=== PATIENT | female | born 1955 | race Caucasian/White ===

== ENCOUNTER → 2017-01-26 | Outpatient (CLI) | payer OTHER ==
[~2017-01-26] MED LIST: ASPI-496 PO; DRON400T PO; VALS80TA3 PO; [UNRECOGNIZED DRUG - REMARK] PO
[2017-01-26 09:08] LABS: HEMATOCRIT 45.5 % (34.6-47.8); HEMOGLOBIN 15.3 g/dL (11.7-16.4); WHITE BLOOD COUNT 6.3 x10^3/uL (3.4-10)
[2017-01-26 09:19] LABS: ASPARTATE AMINO TRANSFERASE 15 U/L (15-37); BLOOD UREA NITROGEN 18 mg/dL (7-18)
== END | disposition home or self-care (01) ==
LOC: LAB 08:41
PROVIDERS: ATTEND Obstetrics & Gynecology
DX: E34.9 Endocrine disorder, unspecified (principal); E78.00 Pure hypercholesterolemia, unspecified; E55.9 Vitamin D deficiency, unspecified; R79.89 Other specified abnormal findings of blood chemistry
CPT/HCPCS: 36415; 80053; 80061; 82306; 82670; 83001; 83002; 83036; 83525; 84144; 84439; 84443; 85025

== ENCOUNTER → 2017-02-20 | Outpatient (CLI) | payer OTHER | END | disposition home or self-care (01) | LOC: CFH 12:54 | PROVIDERS: ATTEND Obstetrics & Gynecology | DX: I34.0 Nonrheumatic mitral (valve) insufficiency (principal); I34.8 Other nonrheumatic mitral valve disorders; I48.0 Paroxysmal atrial fibrillation | CPT/HCPCS: 93306 ==

== ENCOUNTER 2018-07-12 09:51 | Emergency (ER) | payer OTHER ==
[~2018-07-12] VITALS: Ht 167.6 cm; Wt 88.1 kg
--- NOTE | 2018-07-12 10:10 | NUR ---
PT GIVEN GOWN AND ASKED TO CHANGE. RN LEFT ROOM FOR PRIVACY
--- NOTE | 2018-07-12 10:12 | NUR ---
62 Y/O FEMALE PRESENTS TO ED WITH C/O BACK PAIN. 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 I GET SOME TINGLING DOWN MY LEFT LEG OFF AND ON. I JUST NEED IT BETTER." NO ACUTE DISTRESS NOTED. PT PLACED ON CONT PULSE OX,NIBP. NO C/O GLF, SOB, CP, N/V/D,
--- NOTE | 2018-07-12 10:26 | NUR ---
NO C/O LOSS OF BOWEL AND BLADDER
[2018-07-12 10:27] VITALS: BP 136/87
[2018-07-12] MEDS ORDERED: KETOROLAC 30 MG/1 ML IM ONE (10:30)
[2018-07-12] MEDS ORDERED: CYCLOBENZAPRINE 10 MG TABLET PO ONE (10:30)
[2018-07-12] MEDS ORDERED: CYCLOBENZAPRINE 10 MG TABLET ONE (10:30)
[2018-07-12] MEDS ORDERED: KETOROLAC 30 MG/1 ML ONE (10:31)
--- NOTE | 2018-07-12 12:45 | NUR ---
PT GIVEN DISCHARGE. AMBULATED STEADY GAIT TO BATHROOM AND THEN TO DISCHARGE WINDOW.
== END 2018-07-12 12:47 | disposition home or self-care (01) ==
LOC: ED 12:41
DX: M54.42 Lumbago with sciatica, left side (principal); M54.41 Lumbago with sciatica, right side; M79.661 Pain in right lower leg
CPT/HCPCS: 96372; 99283; J1885

== ENCOUNTER 2018-11-09 07:02 | Outpatient (CLI) | payer OTHER ==
[2018-11-09 07:15] LABS: BASOPHILS # (AUTO) 0.05 x10^3/uL (0-0.1); BASOPHILS % (AUTO) 1 % (0-1); EOSINOPHILS # (AUTO) 0.06 x10^3/uL (0-0.4); EOSINOPHILS % (AUTO) 1 % (1-7); LYMPHOCYTES # (AUTO) 2.12 x10^3/uL (1-3.4); LYMPHOCYTES % (AUTO) 33 % (22-44); MD NO; MEAN CORPUSCULAR HEMOGLOBIN 28.9 pg (27.0-34.8); MEAN CORPUSCULAR HGB CONC 32.8 g/dL (32.4-35.8); MEAN CORPUSCULAR VOLUME 88.1 fL (80-100); MEAN PLATELET VOLUME 7.9 fL (7.4-10.4); MONOCYTES # (AUTO) 0.48 x10^3/uL (0.2-0.8); MONOCYTES % (AUTO) 8 % (2-9); NEUTROPHILS # (AUTO) 3.69 x10^3/uL (1.8-6.8); NEUTROPHILS % (AUTO) 58 % (42-75); PLATELET COUNT 325 x10^3/uL (130-400); RED BLOOD COUNT 5.08 x10^6/uL (3.82-5.3); RED CELL DISTRIBUTION WIDTH 13.3 % (9.6-15.2)
[2018-11-09 07:28] LABS: ALANINE AMINOTRANSFERASE 22 U/L (12-78); ALBUMIN 3.7 g/dL (3.4-5.0); ANION GAP 6 mmol/L (5-15); CALCIUM 8.6 mg/dL (8.5-10.1); CHLORIDE 114 mmol/L (98-107); CHOLESTEROL, TOTAL 263 mg/dL (140-239); CREATININE 0.68 mg/dL (0.55-1.02)
[2018-11-09 07:38] LABS: ALKALINE PHOSPHATASE 82 U/L (45-117); BILIRUBIN,TOTAL 0.6 mg/dL (0.2-1.0); HDL CHOL % 25 % (28-40); HDL CHOLESTEROL (DIRECT) 66 mg/dL (40-60); LDL CHOLESTEROL,CALCULATED 177 mg/dL (54-169); LDL/HDL RATIO 2.7 (0.5-3.0); TOTAL PROTEIN 6.9 g/dL (6.4-8.2); TRIGLYCERIDES 98 mg/dL (50-200); VLDL CHOLESTEROL 20 mg/dL (0-25)
== END 2018-11-09 23:59 | disposition home or self-care (01) ==
LOC: LAB 07:02
PROVIDERS: ATTEND Family Medicine
DX: I10 Essential (primary) hypertension (principal)
CPT/HCPCS: 36415; 80053; 80061; 84443; 85025

== ENCOUNTER 2018-11-18 08:13 | Emergency (ER) | payer OTHER ==
[~2018-11-18] VITALS: Ht 165.1 cm; Wt 84.8 kg
[2018-11-18 10:01] VITALS: BP 148/79
== END 2018-11-18 10:32 | disposition home or self-care (01) ==
LOC: ED 10:12
DX: S39.012A Strain of muscle, fascia and tendon of lower back, initial encounter (principal); I48.91 Unspecified atrial fibrillation; I10 Essential (primary) hypertension; X58.XXXA Exposure to other specified factors, initial encounter; Y93.89 Activity, other specified; Y92.89 Other specified places as the place of occurrence of the external cause; Y99.8 Other external cause status
CPT/HCPCS: 96372; 99283; J1885

== ENCOUNTER 2019-09-03 03:19 | Emergency (ER) | payer OTHER ==
[~2019-09-03] VITALS: Ht 165.1 cm; Wt 87.0 kg
[2019-09-03] MEDS ORDERED: SODIUM CHLORIDE FLUSH 10ML SYR IVF ONE (04:00)
[2019-09-03] MEDS ORDERED: SODIUM CHLORIDE 0.9% 1,000ML IVBOLUS ONE (04:00)
[2019-09-03] MEDS ORDERED: PROPOFOL 10 MG/ML, 20ML IVPush ONE (04:00)
[2019-09-03 04:13] LABS: BASOPHILS # (AUTO) 0.07 x10^3/uL (0-0.1); BASOPHILS % (AUTO) 1 % (0-1); EOSINOPHILS # (AUTO) 0.15 x10^3/uL (0-0.4); EOSINOPHILS % (AUTO) 2 % (1-7); LYMPHOCYTES # (AUTO) 2.28 x10^3/uL (1-3.4); LYMPHOCYTES % (AUTO) 30 % (22-44); MD NO; MEAN CORPUSCULAR HEMOGLOBIN 29.3 pg (27.0-34.8); MEAN CORPUSCULAR HGB CONC 33.2 g/dL (32.4-35.8); MEAN CORPUSCULAR VOLUME 88.3 fL (80-100); MEAN PLATELET VOLUME 8.2 fL (7.4-10.4); MONOCYTES # (AUTO) 0.53 x10^3/uL (0.2-0.8); MONOCYTES % (AUTO) 7 % (2-9); NEUTROPHILS # (AUTO) 4.61 x10^3/uL (1.8-6.8); NEUTROPHILS % (AUTO) 60 % (42-75); PLATELET COUNT 337 x10^3/uL (130-400); RED CELL DISTRIBUTION WIDTH 13.1 % (9.6-15.2)
[2019-09-03] MEDS ORDERED: PROPOFOL 10 MG/ML, 20ML ONE (04:13)
[2019-09-03 04:21] LABS: ALBUMIN 3.6 g/dL (3.4-5.0); ANION GAP 7 mmol/L (5-15); CALCIUM 8.5 mg/dL (8.5-10.1); CHLORIDE 112 mmol/L (98-107); CREATININE 0.78 mg/dL (0.55-1.02)
--- NOTE | 2019-09-03 04:59 | NUR ---
SEE PAPERCHARTING FOR CARDIOVERSION AND VS. 150MG PROPOFOL WASTED WITH Souleymane FUNG AT 0785
[2019-09-03 05:24] VITALS: BP 124/75
== END 2019-09-03 05:29 | disposition home or self-care (01) ==
LOC: ED 05:24
DX: I48.0 Paroxysmal atrial fibrillation (principal); I10 Essential (primary) hypertension; I49.9 Cardiac arrhythmia, unspecified; R00.0 Tachycardia, unspecified; Z90.49 Acquired absence of other specified parts of digestive tract
CPT/HCPCS: 36415; 71045; 80048; 82040; 84443; 85025; 92960; 93005; 99152; 99285; J7030

== ENCOUNTER → 2019-10-17 | Outpatient (CLI) | payer OTHER ==
[2019-10-17 08:09] LABS: BASOPHILS # (AUTO) 0.04 x10^3/uL (0-0.1); BASOPHILS % (AUTO) 1 % (0-1); EOSINOPHILS # (AUTO) 0.08 x10^3/uL (0-0.4); EOSINOPHILS % (AUTO) 1 % (1-7); LYMPHOCYTES # (AUTO) 1.66 x10^3/uL (1-3.4); LYMPHOCYTES % (AUTO) 27 % (22-44); MD NO; MEAN CORPUSCULAR HEMOGLOBIN 29.6 pg (27.0-34.8); MEAN CORPUSCULAR HGB CONC 33.2 g/dL (32.4-35.8); MEAN CORPUSCULAR VOLUME 89.1 fL (80-100); MEAN PLATELET VOLUME 8.1 fL (7.4-10.4); MONOCYTES # (AUTO) 0.41 x10^3/uL (0.2-0.8); MONOCYTES % (AUTO) 7 % (2-9); NEUTROPHILS # (AUTO) 4.02 x10^3/uL (1.8-6.8); NEUTROPHILS % (AUTO) 65 % (42-75); PLATELET COUNT 334 x10^3/uL (130-400); RED BLOOD COUNT 5.12 x10^6/uL (3.82-5.3); RED CELL DISTRIBUTION WIDTH 13.3 % (9.6-15.2)
[2019-10-17 08:21] LABS: ALANINE AMINOTRANSFERASE 25 U/L (12-78); ALBUMIN 3.8 g/dL (3.4-5.0); ANION GAP 5 mmol/L (5-15); CALCIUM 8.7 mg/dL (8.5-10.1); CHLORIDE 111 mmol/L (98-107); CHOLESTEROL, TOTAL 267 mg/dL (140-239); CREATININE 0.65 mg/dL (0.55-1.02)
[2019-10-17 08:30] LABS: MICROSCOPIC AUTO
[2019-10-17 08:31] LABS: ALKALINE PHOSPHATASE 79 U/L (45-117); BILIRUBIN,TOTAL 0.6 mg/dL (0.2-1.0); CHOL/HDL RATIO 4.1; HDL CHOL % 24 % (28-40); HDL CHOLESTEROL (DIRECT) 65 mg/dL (40-60); LDL CHOLESTEROL,CALCULATED 181 mg/dL (54-169); LDL/HDL RATIO 2.8 (0.5-3.0); TOTAL PROTEIN 7.4 g/dL (6.4-8.2); TRIGLYCERIDES 103 mg/dL (50-200); VLDL CHOLESTEROL 21 mg/dL (0-25)
== END | disposition home or self-care (01) ==
LOC: LAB 07:29
PROVIDERS: ATTEND Family Medicine
DX: Z00.00 Encounter for general adult medical examination without abnormal findings (principal); E78.5 Hyperlipidemia, unspecified; I10 Essential (primary) hypertension; E66.09 Other obesity due to excess calories
CPT/HCPCS: 36415; 80053; 80061; 81001; 82306; 83036; 84443; 85025; 87086

== ENCOUNTER → 2019-10-18 | Outpatient (CLI) | payer OTHER ==
[~2019-10-18] MED LIST changes: +REGADENOSON 0.4 MG/5 ML SYRINGE ONE
== END | disposition home or self-care (01) ==
LOC: CFH 06:44
PROVIDERS: ATTEND Family Medicine
DX: I08.3 Combined rheumatic disorders of mitral, aortic and tricuspid valves (principal); I11.9 Hypertensive heart disease without heart failure; R01.0 Benign and innocent cardiac murmurs
CPT/HCPCS: 78452; 93017; 93306; A9502; J2785

== ENCOUNTER 2020-01-10 05:38 | Emergency (ER) | payer OTHER ==
[~2020-01-10] VITALS: Ht 165.1 cm; Wt 85.1 kg
[~2020-01-10 05:38] MED LIST changes: -REGADENOSON 0.4 MG/5 ML SYRINGE ONE
--- NOTE | 2020-01-10 06:00 | NUR ---
PT PRESENTS TO THE ER FROM HOME. SHE HAS A KNOWN HEART MURMUR AND WAS SUCCESFULLY CARDIOVERTED IN JUNE, SHE'S BEEN SUCCESFULLY CARDIOVERTED ONE OTHER TIME PREVIOUSLY. PT STATES SHE WAS ALREADY AWAKE THIS AM WHEN SHE FELT HER HEART BEATING VERY IRREGULARLY "THEN WHEN CHECKING IN COULD FEEL IT REGULAR AGAIN, JUST A LITTLE FAST." EKG DONE IN TRIAGE. ERP TO BEDSIDE. PT CONNECT TO BP, CARDIAC AND O2 MONITORS. CALL LIGHT IN REACH. VISITOR AT THE BEDSIDE.
--- NOTE | 2020-01-10 06:08 | NUR ---
PT DENIES CP, ALL NEEDS MET AT THIS TIME.
--- NOTE | 2020-01-10 06:15 | NUR ---
assumed care of pt. 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 pt reports that she was having an episode of palpitations during which she was experinencing dizziness and sweating. denies CP or SOB. pt reports that all sx have since resolved. resting in position of comfort. lab has been to bedside to draw. SO at bedside. pt updated on POC
[2020-01-10 06:25] LABS: BASOPHILS # (AUTO) 0.06 x10^3/uL (0-0.1); BASOPHILS % (AUTO) 1 % (0-1); EOSINOPHILS # (AUTO) 0.08 x10^3/uL (0-0.4); EOSINOPHILS % (AUTO) 1 % (1-7); LYMPHOCYTES # (AUTO) 1.98 x10^3/uL (1-3.4); LYMPHOCYTES % (AUTO) 31 % (22-44); MD NO; MEAN CORPUSCULAR HEMOGLOBIN 29.6 pg (27.0-34.8); MEAN CORPUSCULAR HGB CONC 33.6 g/dL (32.4-35.8); MEAN CORPUSCULAR VOLUME 88.1 fL (80-100); MEAN PLATELET VOLUME 8.4 fL (7.4-10.4); MONOCYTES # (AUTO) 0.52 x10^3/uL (0.2-0.8); MONOCYTES % (AUTO) 8 % (2-9); NEUTROPHILS # (AUTO) 3.85 x10^3/uL (1.8-6.8); NEUTROPHILS % (AUTO) 60 % (42-75); PLATELET COUNT 319 x10^3/uL (130-400); RED BLOOD COUNT 4.98 x10^6/uL (3.82-5.3); RED CELL DISTRIBUTION WIDTH 12.8 % (9.6-15.2)
[2020-01-10 06:32] LABS: ALANINE AMINOTRANSFERASE 24 U/L (12-78); ALBUMIN 3.4 g/dL (3.4-5.0); ANION GAP 6 mmol/L (5-15); CALCIUM 8.8 mg/dL (8.5-10.1); CHLORIDE 115 mmol/L (98-107); CREATININE 0.65 mg/dL (0.55-1.02)
[2020-01-10 06:37] LABS: ALKALINE PHOSPHATASE 74 U/L (45-117); BILIRUBIN,TOTAL 0.4 mg/dL (0.2-1.0); TOTAL PROTEIN 6.7 g/dL (6.4-8.2); TROPONIN I 0.033 ng/mL (0.000-0.045)
--- NOTE | 2020-01-10 07:04 | NUR ---
pt has had CXR. resting in position of comfort. report to Berto SPRAGUE
--- NOTE | 2020-01-10 07:07 | NUR ---
TOOK REPORT FROM DENISE MAYORGA RN. ASSUME CARE AT THIS TIME. 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 AWATING RESULTS.
[2020-01-10 07:49] VITALS: BP 124/74
== END 2020-01-10 07:50 | disposition home or self-care (01) ==
LOC: ED 06:26
DX: R00.2 Palpitations (principal); I10 Essential (primary) hypertension; I48.91 Unspecified atrial fibrillation; I49.9 Cardiac arrhythmia, unspecified; Z90.710 Acquired absence of both cervix and uterus; Z88.2 Allergy status to sulfonamides
CPT/HCPCS: 36415; 71046; 80053; 83735; 84443; 84484; 85025; 93005; 99285

== ENCOUNTER 2020-02-15 08:54 | Day surgery (SDC) | payer OTHER ==
[~2020-02-15] VITALS: Ht 165.1 cm; Wt 82.0 kg
[2020-02-15] MEDS ORDERED: SODIUM CHLORIDE 0.9% 1,000 ML IV SCH (09:30)
[2020-02-15] MEDS ORDERED: APIX5TAB PO (09:48)
[2020-02-15] MEDS ORDERED: FLEC50TA25 PO (09:48)
[2020-02-15] MEDS ORDERED: BEMP180T PO (09:48)
[2020-02-15] MEDS ORDERED: LOSA100T14 PO (09:48)
[2020-02-15] MEDS ORDERED: ROSU5TAB PO (09:48)
[2020-02-15] MEDS ORDERED: METO25TA35 PO (09:48)
[2020-02-15] MEDS ORDERED: CHLO25TA PO (09:48)
[2020-02-15] MEDS ORDERED: CHOL10003 PO (09:48)
[2020-02-15 10:23] LABS: BASOPHILS % (AUTO) 1 % (0-1); EOSINOPHILS % (AUTO) 2 % (1-7); LYMPHOCYTES % (AUTO) 31 % (22-44); MEAN CORPUSCULAR HGB CONC 33.5 g/dL (32.4-35.8); MEAN PLATELET VOLUME 8.2 fL (7.4-10.4); MONOCYTES % (AUTO) 7 % (2-9); NEUTROPHILS % (AUTO) 59 % (42-75); PLATELET COUNT 353 x10^3/uL (130-400); RED BLOOD COUNT 4.86 x10^6/uL (3.82-5.3); RED CELL DISTRIBUTION WIDTH 12.9 % (9.6-15.2)
[2020-02-15 10:29] LABS: ANION GAP 7 mmol/L (5-15); CHLORIDE 109 mmol/L (98-107); MD NO
[2020-02-15] MEDS ORDERED: LIDOCAINE-MPF 1%, 5ML ONE (10:30)
[2020-02-15] MEDS ORDERED: HEPARIN 1,000 UNITS/ML, 10ML ONE (10:30)
[2020-02-15] MEDS ORDERED: FENTANYL PF 100 MCG/2ML ONE (10:30)
[2020-02-15] MEDS ORDERED: MIDAZOLAM 1 MG/ML, 5ML ONE (10:30)
[2020-02-15] MEDS ORDERED: VERAPAMIL 2.5 MG/ML, 2ML ONE (10:30)
== END 2020-02-15 13:35 | disposition home or self-care (01) ==
LOC: CACL 08:54
PROVIDERS: ATTEND Internal Medicine Cardiovascular Disease
DX: I35.0 Nonrheumatic aortic (valve) stenosis (principal); I10 Essential (primary) hypertension; I48.0 Paroxysmal atrial fibrillation; Z79.82 Long term (current) use of aspirin; Z79.01 Long term (current) use of anticoagulants; Z88.8 Allergy status to other drugs, medicaments and biological substances; Z88.1 Allergy status to other antibiotic agents; Z88.2 Allergy status to sulfonamides; Z72.89 Other problems related to lifestyle; Z79.899 Other long term (current) drug therapy; Z98.890 Other specified postprocedural states
CPT/HCPCS: 36415; 80048; 85025; 93454; 99156; C1769; C1894; J1644; J2250; J3010; Q9967

== ENCOUNTER → 2020-02-21 | Outpatient (CLI) | payer OTHER ==
[~2020-02-21] MED LIST changes: +APIX5TAB PO; +BEMP180T PO; +CHLO25TA PO; +CHOL10003 PO; +FLEC50TA25 PO; +LOSA100T14 PO; +METO25TA35 PO; +ROSU5TAB PO; +VISIPAQUE 320 MG/ML, 150ML BOTTLE ONE
== END | disposition home or self-care (01) ==
LOC: RAD 09:39
PROVIDERS: ATTEND Internal Medicine Cardiovascular Disease
DX: Z01.810 Encounter for preprocedural cardiovascular examination (principal); K76.0 Fatty (change of) liver, not elsewhere classified; R06.02 Shortness of breath; I65.29 Occlusion and stenosis of unspecified carotid artery; I25.10 Atherosclerotic heart disease of native coronary artery without angina pectoris; I70.0 Atherosclerosis of aorta
CPT/HCPCS: 71275; 74174; 93880; 94060; 94726; 94729; Q9967

== ENCOUNTER 2020-03-16 04:28 | Inpatient (IN) | payer OTHER ==
[2020-03-15 13:50] LABS: BASOPHILS % (AUTO) 1 % (0-1); EOSINOPHILS % (AUTO) 1 % (1-7); LYMPHOCYTES % (AUTO) 28 % (22-44); MEAN CORPUSCULAR HEMOGLOBIN 29.7 pg (27.0-34.8); MEAN CORPUSCULAR HGB CONC 33.8 g/dL (32.4-35.8); MEAN PLATELET VOLUME 8.1 fL (7.4-10.4); MONOCYTES % (AUTO) 6 % (2-9); NEUTROPHILS % (AUTO) 64 % (42-75); PLATELET COUNT 345 x10^3/uL (130-400); RED BLOOD COUNT 4.47 x10^6/uL (3.82-5.3); RED CELL DISTRIBUTION WIDTH 13.1 % (9.6-15.2)
[2020-03-15 13:57] LABS: INTERNATIONAL NORMALIZED RATIO 1.06 (0.93-1.1); PROTHROMBIN TIME 11.2 Seconds (9.6-11.5)
[2020-03-15 14:07] LABS: CHLORIDE 106 mmol/L (98-107)
[2020-03-15 14:08] LABS: ALANINE AMINOTRANSFERASE 24 U/L (12-78); ALKALINE PHOSPHATASE 63 U/L (45-117); ANION GAP 6 mmol/L (5-15); BILIRUBIN,TOTAL 0.5 mg/dL (0.2-1.0); CALCIUM 9.2 mg/dL (8.5-10.1); CREATININE 0.79 mg/dL (0.55-1.02); TOTAL PROTEIN 7.3 g/dL (6.4-8.2)
[2020-03-15 14:22] LABS: MD NO
[2020-03-15 14:23] LABS: MICROSCOPIC AUTO
[~2020-03-16] VITALS: Ht 165.1 cm; Wt 86.5 kg
[~2020-03-16 04:28] MED LIST changes: -VISIPAQUE 320 MG/ML, 150ML BOTTLE ONE
[2020-03-16 04:49] VITALS: BP_SYST 131; BP_SYST 160; BP_DIAS 85; BP_DIAS 86
[2020-03-16] MEDS ORDERED: DO NOT GIVE MC SCH (05:00)
[2020-03-16] MEDS ORDERED: CHLORHEXIDINE 15 ML UDC MM SCH (05:00)
[2020-03-16] MEDS ORDERED: DO NOT GIVE XX SCH (05:00)
[2020-03-16] MEDS ORDERED: INSULIN LISPRO 100 UNITS/ML, PEN SQ-INSULIN SCH (05:00)
[2020-03-16] MEDS ORDERED: MIDAZOLAM 10MG/2 ML ONE (06:46)
[2020-03-16] MEDS ORDERED: FENTANYL PF 250 MCG/5ML ONE ×4 (06:46→06:47)
[2020-03-16] MEDS ORDERED: PHENYLEPHRINE 10 MG/ML ONE ×2 (06:51→08:35)
[2020-03-16] MEDS ORDERED: MANNITOL PMX 20% 500 ML IVPB PRN (07:30)
[2020-03-16] MEDS ORDERED: CEFUROXIME 1.5 GM in SODIUM CHLORIDE 0.9% 50 ML IVPB PRN (07:30)
[2020-03-16] MEDS ORDERED: ALBUMIN HUMAN 5% 500 ML IV PRN (07:30)
[2020-03-16] MEDS ORDERED: DEXMEDETOMIDINE 200 MCG in SODIUM CHLORIDE 0.9% 48 ML IV PRN ×2 (07:30→11:30)
[2020-03-16] MEDS ORDERED: PHENYLEPHRINE 50 MG in SODIUM CHLORIDE 0.9% 245 ML IV PRN (07:30)
[2020-03-16] MEDS ORDERED: REGULAR INSULIN 100 UNITS in SODIUM CHLORIDE 0.9% 99 ML IV PRN ×2 (07:30→11:30)
[2020-03-16] MEDS ORDERED: VANCOMYCIN 1,200 MG in SODIUM CHLORIDE 0.9% 250 ML IV PRN (07:30)
[2020-03-16] MEDS ORDERED: POTASSIUM CHLORIDE 80 MEQ, SODIUM BICARBONATE 8.4% 10 MEQ, MAGNESIUM SULFATE 0.5 GM, LI... IV PRN (07:30)
[2020-03-16] MEDS ORDERED: EPINEPHRINE 5 MG in SODIUM CHLORIDE 0.9% 245 ML IV PRN ×2 (07:30→11:30)
[2020-03-16] MEDS ORDERED: PROPOFOL 10 MG/ML, 20ML ONE (08:35)
[2020-03-16] MEDS ORDERED: VASOPRESSIN 20 UNIT/ML, 1ML ONE ×2 (08:35→16:44)
[2020-03-16] MEDS ORDERED: CALCIUM CHLORIDE 10%, 10ML SYR ONE (08:35)
[2020-03-16] MEDS ORDERED: ROCURONIUM 10MG/ML,5ML ONE ×2 (08:35)
[2020-03-16] MEDS ORDERED: AMINOCAPROIC ACID 250 MG/ML, 20ML ONE ×2 (08:35)
[2020-03-16] MEDS ORDERED: MUPIROCIN OINT 2%, 22GM TP SCH (09:00)
[2020-03-16] MEDS ORDERED: SODIUM CHLORIDE FLUSH 10ML SYR IVF SCH (09:00)
[2020-03-16] MEDS: DOCUSATE 100 MG CAPSULE PO SCH ×2 (09:00→20:26)
[2020-03-16] MEDS ORDERED: PROTAMINE SULFATE 10 MG/ML, 25ML ONE (09:02)
[2020-03-16] MEDS ORDERED: NITROGLYCERIN/D5W PMX 250 ML IV PRN (11:30)
[2020-03-16] MEDS ORDERED: DEXTROSE 4 GM TAB.CHEW PO PRN (11:30)
[2020-03-16] MEDS ORDERED: ACETAMINOPHEN 650 MG SUPP PR PRN (11:30)
[2020-03-16] MEDS ORDERED: SODIUM BICARB 8.4%, 50ML SYRINGE IV PRN (11:30)
[2020-03-16] MEDS ORDERED: MIDAZOLAM 1 MG/ML, 5ML IVPush PRN (11:30)
[2020-03-16] MEDS ORDERED: VASOPRESSIN 20 UNIT in SODIUM CHLORIDE 0.9% 99 ML IV PRN (11:30)
[2020-03-16] MEDS ORDERED: LACTATED RINGERS 1,000 ML IV PRN (11:30)
[2020-03-16] MEDS ORDERED: BISACODYL 10 MG SUPP PR PRN (11:30)
[2020-03-16] MEDS ORDERED: BISACODYL 5 MG EC TABLET PO PRN (11:30)
[2020-03-16] MEDS ORDERED: DEXTROSE 50%, 50ML SYRINGE IVPush PRN (11:30)
[2020-03-16] MEDS ORDERED: GLUCAGON 1 MG IM PRN (11:30)
[2020-03-16] MEDS ORDERED: SODIUM CHLORIDE 0.9% 1,000 ML IV PRN (11:30)
[2020-03-16 11:59] LABS: GLUCOSE BY BLOOD GAS ANALYZER 135 mg/dL (70-110); POTASSIUM BY BLOOD GAS ANALYZR 2.8 mmol/L (3.6-5.5)
[2020-03-16] MEDS: KSCALE TO 4.5 IV SCH ×2 (12:00→18:00)
[2020-03-16] MEDS ORDERED: MORPHINE SULFATE 4 MG/ML, 1ML ONE ×2 (12:26→13:23)
[2020-03-16] MEDS ORDERED: POTASSIUM CHLORIDE 40 MEQ in SODIUM CHLORIDE 0.9% 100 ML IV ONE (12:30)
[2020-03-16] MEDS: morphine SULFATE 10 MG/ML, 1ML IVPush PRN ×2 (12:31→13:31)
[2020-03-16] MEDS: MAGNESIUM SULFATE 1 GM in SODIUM CHLORIDE 0.9% 100 ML IVPB SCH (15:52)
[2020-03-16] MEDS: INSULIN LISPRO 100 UNITS/ML, PEN SQ-INSULIN SCH ×2 (16:00→19:27)
[2020-03-16] MEDS: OXYcodone IR 5MG TABLET PO PRN ×2 (16:59→22:34)
[2020-03-16] MEDS: ONDANSETRON 2MG/ML, 2ML IVPush PRN (16:59)
[2020-03-16] MEDS ORDERED: SODIUM BICARBONATE 1 MEQ/ML, 50ML VIAL ONE (17:27)
[2020-03-16] MEDS ORDERED: methylPREDNISolone SOD SUCC 125 MG/2 ML ONE (17:28)
[2020-03-16] MEDS ORDERED: LIDOCAINE 2%, 20ML ONE (17:28)
[2020-03-16] MEDS ORDERED: HEPARIN 1,000 UNITS/ML, 30ML ONE (17:28)
[2020-03-16] MEDS ORDERED: ALBUMIN HUMAN 25% 50 ML ONE (17:28)
[2020-03-16] MEDS: HYDROcodone/APAP 10/325 MG TABLET PO PRN (18:55)
[2020-03-16] MEDS: PROCHLORPERAZINE 5 MG/ML, 2ML IVPush PRN (19:54)
[2020-03-16] MEDS: VANCOMYCIN 1,200 MG in SODIUM CHLORIDE 0.9% 250 ML IVPB SCH (20:25)
[2020-03-16] MEDS: SODIUM CHLORIDE FLUSH 10ML SYR IVF SCH (20:26)
[2020-03-16] MEDS: CEFUROXIME 1.5 GM in SODIUM CHLORIDE 0.9% 50 ML IVPB SCH (20:26)
[2020-03-16] MEDS: MUPIROCIN OINT 2%, 22GM NAS SCH (20:26)
[2020-03-17] MEDS ORDERED: POTASSIUM CHLORIDE PMX 100 ML IV ONE ×2 (01:00→06:00)
[2020-03-17] MEDS: OXYcodone IR 5MG TABLET PO PRN ×7 (01:08→23:57)
[2020-03-17 04:46] LABS: BASOPHILS % (AUTO) 0 % (0-1); EOSINOPHILS % (AUTO) 0 % (1-7); LYMPHOCYTES % (AUTO) 5 % (22-44); MEAN CORPUSCULAR HEMOGLOBIN 29.3 pg (27.0-34.8); MEAN CORPUSCULAR HGB CONC 33.7 g/dL (32.4-35.8); MONOCYTES % (AUTO) 7 % (2-9); NEUTROPHILS % (AUTO) 89 % (42-75); PLATELET COUNT 222 x10^3/uL (130-400); RED BLOOD COUNT 3.55 x10^6/uL (3.82-5.3)
[2020-03-17 04:47] LABS: MD NO
[2020-03-17 04:54] LABS: ALBUMIN 3.5 g/dL (3.4-5.0); ANION GAP 6 mmol/L (5-15); CALCIUM 8.1 mg/dL (8.5-10.1); CHLORIDE 116 mmol/L (98-107); CREATININE 0.65 mg/dL (0.55-1.02)
[2020-03-17 04:57] LABS: INTERNATIONAL NORMALIZED RATIO 1.1 (0.93-1.1); PROTHROMBIN TIME 11.6 Seconds (9.6-11.5)
[2020-03-17] MEDS: KSCALE TO 4.5 IV SCH ×2 (05:28)
[2020-03-17] MEDS: ONDANSETRON 2MG/ML, 2ML IVPush PRN ×2 (06:47→17:38)
[2020-03-17] MEDS ORDERED: MAGNESIUM HYDROXIDE 8%, 30ML UDC PO PRN (08:30)
[2020-03-17] MEDS: MUPIROCIN OINT 2%, 22GM NAS SCH ×2 (09:00→20:09)
[2020-03-17] MEDS: SODIUM CHLORIDE FLUSH 10ML SYR IVF SCH ×3 (09:00→21:00)
[2020-03-17] MEDS: ASPIRIN 81 MG TABLET EC PO SCH (09:22)
[2020-03-17] MEDS: METOPROLOL TARTRATE 25 MG TAB PO SCH ×2 (09:22→18:10)
[2020-03-17] MEDS: DOCUSATE 100 MG CAPSULE PO SCH ×2 (09:22→20:09)
[2020-03-17] MEDS: CEFUROXIME 1.5 GM in SODIUM CHLORIDE 0.9% 50 ML IVPB SCH (09:23)
[2020-03-17] MEDS: FUROSEMIDE 20 MG/2 ML IV SCH (09:29)
[2020-03-17] MEDS: METOPROLOL TARTRATE 25 MG TAB PO/NG SCH ×2 (09:34→19:41)
[2020-03-17] MEDS: INSULIN LISPRO 100 UNITS/ML, PEN SQ-INSULIN SCH ×4 (09:38→20:10)
[2020-03-17] MEDS: VANCOMYCIN 1,200 MG in SODIUM CHLORIDE 0.9% 250 ML IVPB SCH (09:44)
[2020-03-17] MEDS: POTASSIUM CHLORIDE 20 MEQ TAB.ER.PRT PO SCH (09:47)
[2020-03-17 10:51] LABS: MICROSCOPIC INDICATED
[2020-03-17] MEDS: MAGNESIUM SULFATE 1 GM in SODIUM CHLORIDE 0.9% 100 ML IVPB SCH (15:45)
[2020-03-17 17:18] VITALS: BP 104/67
[2020-03-17 18:09] VITALS: BP 98/64
[2020-03-17 18:48] VITALS: BP 93/63
[2020-03-17] MEDS: CHLORHEXIDINE 15 ML UDC MM SCH (20:09)
[2020-03-17] MEDS: PROCHLORPERAZINE 5 MG/ML, 2ML IVPush PRN (22:16)
[2020-03-18] VITALS (9 sets, daily range): BP systolic 88–116; BP diastolic 54–74
[2020-03-18] MEDS: ONDANSETRON 2MG/ML, 2ML IVPush PRN ×2 (03:01→03:23)
[2020-03-18] MEDS: morphine SULFATE 10 MG/ML, 1ML IVPush PRN (03:23)
[2020-03-18 03:57] LABS: ANION GAP 5 mmol/L (5-15); CALCIUM 8.2 mg/dL (8.5-10.1); CHLORIDE 111 mmol/L (98-107); CREATININE 0.83 mg/dL (0.55-1.02); INTERNATIONAL NORMALIZED RATIO 1.09 (0.93-1.1); PROTHROMBIN TIME 11.5 Seconds (9.6-11.5)
[2020-03-18 03:58] LABS: BASOPHILS % (AUTO) 0 % (0-1); EOSINOPHILS % (AUTO) 0 % (1-7); LYMPHOCYTES % (AUTO) 7 % (22-44); MEAN CORPUSCULAR HEMOGLOBIN 29.5 pg (27.0-34.8); MEAN CORPUSCULAR HGB CONC 34.1 g/dL (32.4-35.8); MEAN PLATELET VOLUME 8.9 fL (7.4-10.4); MONOCYTES % (AUTO) 7 % (2-9); NEUTROPHILS % (AUTO) 86 % (42-75); PLATELET COUNT 187 x10^3/uL (130-400); RED BLOOD COUNT 3.28 x10^6/uL (3.82-5.3); RED CELL DISTRIBUTION WIDTH 14.6 % (9.6-15.2)
[2020-03-18 05:06] LABS: MD SCAN
[2020-03-18] MEDS: METOPROLOL TARTRATE 25 MG TAB PO SCH ×2 (05:24→19:43)
[2020-03-18] MEDS: HYDROcodone/APAP 10/325 MG TABLET PO PRN ×2 (06:59→15:49)
[2020-03-18] MEDS: INSULIN LISPRO 100 UNITS/ML, PEN SQ-INSULIN SCH ×5 (07:00→21:00)
[2020-03-18] MEDS ORDERED: FUROSEMIDE 40 MG/4 ML IV STA (07:31)
[2020-03-18] MEDS ORDERED: FUROSEMIDE 40 MG/4 ML ONE (07:36)
[2020-03-18] MEDS: CHLORHEXIDINE 15 ML UDC MM SCH ×2 (09:00→22:15)
[2020-03-18] MEDS ORDERED: METOPROLOL TARTRATE 25 MG TAB PO/NG SCH (09:00)
[2020-03-18] MEDS: ASPIRIN 81 MG TABLET EC PO SCH (09:02)
[2020-03-18] MEDS: MUPIROCIN OINT 2%, 22GM NAS SCH ×2 (09:02→22:15)
[2020-03-18] MEDS: POTASSIUM CHLORIDE 20 MEQ TAB.ER.PRT PO SCH (09:02)
[2020-03-18] MEDS: SODIUM CHLORIDE FLUSH 10ML SYR IVF SCH ×4 (09:03→22:15)
[2020-03-18] MEDS: DOCUSATE 100 MG CAPSULE PO SCH ×2 (09:04→22:15)
[2020-03-18] MEDS: FUROSEMIDE 20 MG/2 ML IV SCH (10:35)
[2020-03-18] MEDS: ENOXAPARIN 40 MG/0.4 ML SQ SCH (10:36)
[2020-03-18 12:47] LABS: MICROSCOPIC AUTO
[2020-03-18] MEDS: MAGNESIUM SULFATE 1 GM in SODIUM CHLORIDE 0.9% 100 ML IVPB SCH (15:47)
[2020-03-18] MEDS: ACETAMINOPHEN 325 MG TABLET PO PRN (22:38)
[2020-03-19 01:57] VITALS: BP 100/65
[2020-03-19] MEDS: OXYcodone IR 5MG TABLET PO PRN ×2 (02:27→20:36)
[2020-03-19 05:06] LABS: BASOPHILS % (AUTO) 0 % (0-1); EOSINOPHILS % (AUTO) 0 % (1-7); LYMPHOCYTES % (AUTO) 10 % (22-44); MEAN CORPUSCULAR HEMOGLOBIN 29.3 pg (27.0-34.8); MEAN CORPUSCULAR HGB CONC 33.8 g/dL (32.4-35.8); MEAN PLATELET VOLUME 8.7 fL (7.4-10.4); MONOCYTES % (AUTO) 6 % (2-9); NEUTROPHILS % (AUTO) 84 % (42-75); PLATELET COUNT 162 x10^3/uL (130-400); RED BLOOD COUNT 3.25 x10^6/uL (3.82-5.3); RED CELL DISTRIBUTION WIDTH 14.5 % (9.6-15.2)
[2020-03-19 05:17] LABS: ANION GAP 7 mmol/L (5-15); CALCIUM 8.4 mg/dL (8.5-10.1); CHLORIDE 106 mmol/L (98-107); CREATININE 0.74 mg/dL (0.55-1.02)
[2020-03-19] MEDS: METOPROLOL TARTRATE 25 MG TAB PO SCH ×2 (05:53→17:49)
[2020-03-19 05:54] LABS: MD SCAN
[2020-03-19 06:37] VITALS: BP 102/68
[2020-03-19] MEDS: INSULIN LISPRO 100 UNITS/ML, PEN SQ-INSULIN SCH ×2 (07:00→11:00)
[2020-03-19] MEDS: DOCUSATE 100 MG CAPSULE PO SCH ×2 (08:30→20:36)
[2020-03-19] MEDS: ASPIRIN 81 MG TABLET EC PO SCH (08:30)
[2020-03-19] MEDS: FUROSEMIDE 20 MG/2 ML IV SCH (08:30)
[2020-03-19] MEDS: MUPIROCIN OINT 2%, 22GM NAS SCH ×2 (08:30→20:38)
[2020-03-19] MEDS: POTASSIUM CHLORIDE 20 MEQ TAB.ER.PRT PO SCH (08:30)
[2020-03-19] MEDS: CHLORHEXIDINE 15 ML UDC MM SCH (08:30)
[2020-03-19] MEDS: SODIUM CHLORIDE FLUSH 10ML SYR IVF SCH ×4 (08:32→20:39)
[2020-03-19] MEDS: ENOXAPARIN 40 MG/0.4 ML SQ SCH (08:32)
[2020-03-19 12:52] VITALS: BP 113/80
[2020-03-19 18:32] VITALS: BP 103/67
[2020-03-20 01:50] VITALS: BP 105/68
[2020-03-20] MEDS: METOPROLOL TARTRATE 25 MG TAB PO SCH ×2 (05:58→17:52)
[2020-03-20 06:45] VITALS: BP 115/72
[2020-03-20 08:33] LABS: BASOPHILS % (AUTO) 1 % (0-1); EOSINOPHILS % (AUTO) 1 % (1-7); LYMPHOCYTES % (AUTO) 16 % (22-44); MEAN CORPUSCULAR HEMOGLOBIN 29.5 pg (27.0-34.8); MEAN PLATELET VOLUME 8.5 fL (7.4-10.4); MONOCYTES % (AUTO) 8 % (2-9); NEUTROPHILS % (AUTO) 75 % (42-75); PLATELET COUNT 215 x10^3/uL (130-400); RED BLOOD COUNT 3.12 x10^6/uL (3.82-5.3); RED CELL DISTRIBUTION WIDTH 14.1 % (9.6-15.2)
[2020-03-20 08:34] LABS: MD NO
[2020-03-20 08:43] LABS: ANION GAP 5 mmol/L (5-15); CALCIUM 8.6 mg/dL (8.5-10.1); CHLORIDE 105 mmol/L (98-107); CREATININE 0.55 mg/dL (0.55-1.02)
[2020-03-20] MEDS: SODIUM CHLORIDE FLUSH 10ML SYR IVF SCH ×4 (09:00→20:21)
[2020-03-20] MEDS: FUROSEMIDE 20 MG/2 ML IV SCH (09:09)
[2020-03-20] MEDS: ENOXAPARIN 40 MG/0.4 ML SQ SCH (09:09)
[2020-03-20] MEDS: MUPIROCIN OINT 2%, 22GM NAS SCH ×2 (09:09→20:21)
[2020-03-20] MEDS: DOCUSATE 100 MG CAPSULE PO SCH ×2 (09:10→20:19)
[2020-03-20] MEDS: ASPIRIN 81 MG TABLET EC PO SCH (09:10)
[2020-03-20] MEDS: POTASSIUM CHLORIDE 20 MEQ TAB.ER.PRT PO SCH (09:10)
[2020-03-20 13:15] VITALS: BP 103/62
[2020-03-20] MEDS: ERTAPENEM 1 GM in SODIUM CHLORIDE 0.9% 50 ML IV SCH (15:04)
[2020-03-20] MEDS: ACETAMINOPHEN 325 MG TABLET PO PRN (16:35)
[2020-03-20 18:43] VITALS: BP 96/64
[2020-03-21 01:02] VITALS: BP 120/76
[2020-03-21] MEDS: OXYcodone IR 5MG TABLET PO PRN ×2 (02:09→22:01)
[2020-03-21] MEDS: METOPROLOL TARTRATE 25 MG TAB PO SCH ×2 (06:06→17:30)
[2020-03-21 06:52] LABS: BASOPHILS % (AUTO) 1 % (0-1); EOSINOPHILS % (AUTO) 2 % (1-7); LYMPHOCYTES % (AUTO) 20 % (22-44); MEAN CORPUSCULAR HEMOGLOBIN 29.6 pg (27.0-34.8); MEAN PLATELET VOLUME 8.7 fL (7.4-10.4); MONOCYTES % (AUTO) 8 % (2-9); NEUTROPHILS % (AUTO) 70 % (42-75); PLATELET COUNT 248 x10^3/uL (130-400); RED BLOOD COUNT 3.22 x10^6/uL (3.82-5.3); RED CELL DISTRIBUTION WIDTH 14.3 % (9.6-15.2)
[2020-03-21 06:59] LABS: ANION GAP 5 mmol/L (5-15); CALCIUM 8.5 mg/dL (8.5-10.1); CHLORIDE 106 mmol/L (98-107); CREATININE 0.48 mg/dL (0.55-1.02)
[2020-03-21 07:10] LABS: MD SCAN
[2020-03-21] MEDS: DOCUSATE 100 MG CAPSULE PO SCH ×2 (08:05→22:01)
[2020-03-21] MEDS: ASPIRIN 81 MG TABLET EC PO SCH (08:05)
[2020-03-21] MEDS: FUROSEMIDE 40 MG/4 ML IV SCH ×2 (08:05→09:00)
[2020-03-21] MEDS: POTASSIUM CHLORIDE 20 MEQ TAB.ER.PRT PO SCH (08:05)
[2020-03-21] MEDS: ENOXAPARIN 40 MG/0.4 ML SQ SCH (08:05)
[2020-03-21] MEDS: SODIUM CHLORIDE FLUSH 10ML SYR IVF SCH ×4 (08:06→22:02)
[2020-03-21 08:10] VITALS: BP 121/75
[2020-03-21] MEDS: MUPIROCIN OINT 2%, 22GM NAS SCH (08:10)
[2020-03-21] MEDS: HYDROcodone/APAP 10/325 MG TABLET PO PRN (10:10)
[2020-03-21] MEDS: ERTAPENEM 1 GM in SODIUM CHLORIDE 0.9% 50 ML IV SCH (13:13)
[2020-03-21 14:22] VITALS: BP 117/75
[2020-03-21] MEDS: NYSTATIN 500,000 UNITS/5 ML UDC PO SCH ×2 (15:55→22:01)
[2020-03-21] MEDS: ONDANSETRON 2MG/ML, 2ML IVPush PRN (17:30)
[2020-03-21 18:48] VITALS: BP 110/63
[2020-03-22 03:00] VITALS: BP 107/68
[2020-03-22] MEDS: ACETAMINOPHEN 325 MG TABLET PO PRN (03:34)
[2020-03-22 05:17] LABS: ANION GAP 6 mmol/L (5-15); CALCIUM 8.5 mg/dL (8.5-10.1); CHLORIDE 104 mmol/L (98-107)
[2020-03-22 05:18] LABS: CREATININE 0.62 mg/dL (0.55-1.02)
[2020-03-22] MEDS: NYSTATIN 500,000 UNITS/5 ML UDC PO SCH ×4 (05:29→21:02)
[2020-03-22] MEDS: METOPROLOL TARTRATE 25 MG TAB PO SCH ×2 (05:29→17:46)
[2020-03-22 06:54] VITALS: BP 116/75
[2020-03-22] MEDS: SODIUM CHLORIDE FLUSH 10ML SYR IVF SCH ×4 (09:00→21:02)
[2020-03-22] MEDS: FUROSEMIDE 40 MG/4 ML IV SCH (09:19)
[2020-03-22] MEDS: DOCUSATE 100 MG CAPSULE PO SCH ×2 (09:19→21:02)
[2020-03-22] MEDS: ASPIRIN 81 MG TABLET EC PO SCH (09:19)
[2020-03-22] MEDS: POTASSIUM CHLORIDE 20 MEQ TAB.ER.PRT PO SCH (09:19)
[2020-03-22] MEDS: ENOXAPARIN 40 MG/0.4 ML SQ SCH (09:19)
[2020-03-22] MEDS: OXYcodone IR 5MG TABLET PO PRN ×2 (12:05→22:17)
[2020-03-22 12:56] VITALS: BP 120/80
[2020-03-22] MEDS: ERTAPENEM 1 GM in SODIUM CHLORIDE 0.9% 50 ML IV SCH (14:17)
[2020-03-22 18:34] VITALS: BP 111/76
[2020-03-23 05:09] VITALS: BP 115/73
[2020-03-23] MEDS: NYSTATIN 500,000 UNITS/5 ML UDC PO SCH ×3 (05:10→16:00)
[2020-03-23] MEDS: METOPROLOL TARTRATE 25 MG TAB PO SCH (05:11)
[2020-03-23 06:22] LABS: ANION GAP 7 mmol/L (5-15); CALCIUM 8.8 mg/dL (8.5-10.1); CHLORIDE 106 mmol/L (98-107); CREATININE 0.67 mg/dL (0.55-1.02)
[2020-03-23] MEDS: ASPIRIN 81 MG TABLET EC PO SCH (08:20)
[2020-03-23] MEDS: POTASSIUM CHLORIDE 20 MEQ TAB.ER.PRT PO SCH (08:20)
[2020-03-23] MEDS: DOCUSATE 100 MG CAPSULE PO SCH (08:20)
[2020-03-23] MEDS: FUROSEMIDE 40 MG/4 ML IV SCH (08:20)
[2020-03-23] MEDS: ENOXAPARIN 40 MG/0.4 ML SQ SCH (08:20)
[2020-03-23] MEDS: SODIUM CHLORIDE FLUSH 10ML SYR IVF SCH ×2 (08:21→09:00)
[2020-03-23 09:06] VITALS: BP 119/75
[2020-03-23] MEDS ORDERED: NITR50CA11 PO (12:44)
[2020-03-23] MEDS ORDERED: TRAM50TA2 PO (12:44)
[2020-03-23] MEDS ORDERED: NYST1000 PO (12:44)
[2020-03-23 12:57] VITALS: BP 127/83
[2020-03-23] MEDS: ERTAPENEM 1 GM in SODIUM CHLORIDE 0.9% 50 ML IV SCH (13:59)
[2020-03-23] MEDS ORDERED: NITROFURANTOIN 50 MG CAPSULE PO SCH (16:00)
== END 2020-03-23 16:34 | disposition home or self-care (01) | DRG 220 ==
LOC: 5SO 04:28 → CSU 07:30 → 5SO 03-17 16:53
PROVIDERS: ADMIT Thoracic Surgery (Cardiothoracic Vascular Surgery); ATTEND Thoracic Surgery (Cardiothoracic Vascular Surgery)
PROC: 30233R1 Transfusion of Nonautologous Platelets into Peripheral Vein, Percutaneous Approach (ICD-10-PCS; 2020-03-16)
PROC: 30233N1 Transfusion of Nonautologous Red Blood Cells into Peripheral Vein, Percutaneous Approach (ICD-10-PCS; 2020-03-16)
PROC: B24BZZ4 Ultrasonography of Heart with Aorta, Transesophageal (ICD-10-PCS; 2020-03-16)
PROC: 5A1221Z Performance of Cardiac Output, Continuous (ICD-10-PCS; 2020-03-16)
PROC: 02RF08Z Replacement of Aortic Valve with Zooplastic Tissue, Open Approach (ICD-10-PCS; principal; 2020-03-16 07:30)
PROC: 0T9B70Z Drainage of Bladder with Drainage Device, Via Natural or Artificial Opening (ICD-10-PCS; 2020-03-17)
DX: I35.0 Nonrheumatic aortic (valve) stenosis (principal); N39.0 Urinary tract infection, site not specified; Z16.12 Extended spectrum beta lactamase (ESBL) resistance; Z20.828 Contact with and (suspected) exposure to other viral communicable diseases; I48.0 Paroxysmal atrial fibrillation; B96.20 Unspecified Escherichia coli [E. coli] as the cause of diseases classified elsewhere; Z00.6 Encounter for examination for normal comparison and control in clinical research program; Z88.2 Allergy status to sulfonamides; Z88.8 Allergy status to other drugs, medicaments and biological substances
CPT/HCPCS: 36415; 36600; J3490; S0017; 71045; 71046; 80048; 80053; 81001; 82040; 82330; 82800; 82803; 82810; 82947; 82962; 83036; 83735; 84132; 84295; 85014; 85018; 85025; 85049; 85347; 85610; 85730; 86850; 86900; 86923; 87077; 87081; 87086; 87184; 87186; 87635; 88305; 88311; 93005; 93312; 93321; 93325; 94002; 94150; C1768; G0378; J0171; J0697; J1335; J1644; J1650; J1815; J1940; J2250; J2405; J2704; J2720; J3010; J3370; J3475; J3480; P9045; P9047; C1751; C1760; J0780; J2270; J2370; J2930; J7050; P9016; P9035

== ENCOUNTER 2020-04-26 12:11 | Outpatient (CLI) | payer OTHER ==
[~2020-04-26 12:11] MED LIST changes: +NITR50CA11 PO; +NYST1000 PO; +TRAM50TA2 PO
[2020-04-26 12:56] LABS: MICROSCOPIC NOT IND
== END 2020-04-26 23:59 | disposition home or self-care (01) ==
LOC: LAB 12:11
PROVIDERS: ATTEND Nurse Practitioner
DX: N39.0 Urinary tract infection, site not specified (principal)
CPT/HCPCS: 81003

== ENCOUNTER → 2020-05-10 | Outpatient (CLI) | payer OTHER ==
[2020-05-10 07:52] LABS: CHOL/HDL RATIO 2.8; LDL/HDL RATIO 1.4 (0.5-3.0)
== END | disposition home or self-care (01) ==
LOC: LAB 07:15
PROVIDERS: ATTEND Family Medicine
DX: E78.2 Mixed hyperlipidemia (principal)
CPT/HCPCS: 36415; 80061

== ENCOUNTER → 2020-06-25 | Outpatient (CLI) | payer OTHER ==
[2020-06-25 07:21] LABS: MEAN CORPUSCULAR HEMOGLOBIN 29.3 pg (27.0-34.8); MEAN CORPUSCULAR HGB CONC 33.8 g/dL (32.4-35.8); MEAN PLATELET VOLUME 7.9 fL (7.4-10.4); PLATELET COUNT 318 x10^3/uL (130-400); RED BLOOD COUNT 4.82 x10^6/uL (3.82-5.3); RED CELL DISTRIBUTION WIDTH 13.2 % (9.6-15.2)
[2020-06-25 07:31] LABS: ALANINE AMINOTRANSFERASE 29 U/L (12-78); ALBUMIN 4.1 g/dL (3.4-5.0); ANION GAP 7 mmol/L (5-15); CALCIUM 9.4 mg/dL (8.5-10.1); CHLORIDE 110 mmol/L (98-107); CHOLESTEROL, TOTAL 175 mg/dL (140-239); CREATININE 0.77 mg/dL (0.55-1.02); TRIGLYCERIDES 85 mg/dL (50-200); VLDL CHOLESTEROL 17 mg/dL (0-25)
[2020-06-25 07:34] LABS: ALKALINE PHOSPHATASE 77 U/L (45-117); BILIRUBIN,TOTAL 0.4 mg/dL (0.2-1.0); HDL CHOLESTEROL (DIRECT) 63 mg/dL (40-60); TOTAL PROTEIN 7.3 g/dL (6.4-8.2)
[2020-06-25 07:42] LABS: CHOL/HDL RATIO 2.8; HDL CHOL % 36 % (28-40); LDL CHOLESTEROL,CALCULATED 94 mg/dL (54-169); LDL/HDL RATIO 1.5 (0.5-3.0)
== END | disposition home or self-care (01) ==
LOC: LAB 07:05
PROVIDERS: ATTEND Internal Medicine Cardiovascular Disease
DX: I10 Essential (primary) hypertension (principal); I35.0 Nonrheumatic aortic (valve) stenosis; I48.91 Unspecified atrial fibrillation; Z95.2 Presence of prosthetic heart valve
CPT/HCPCS: 36415; 80053; 80061; 85027